=== PATIENT | male | born 1985 | race Caucasian/White ===

== ENCOUNTER 2024-09-06 22:20 | Emergency (ER) | payer SELFPAY ==
--- NOTE | ~2024-09-06 | XR_ITS ---
EXAM: XR foot RT min 3V DATE: 09/06/2024 22:45 HISTORY: crush injury . COMPARISON: None available. FINDINGS: Normal mineralization. No fracture or dislocation. No lytic or blastic lesion. Mild degene rative change at the first MTP joint. Mild hallux valgus. Achilles enthesopathy. Chronic shortening o f the second metatarsal, with possible old fracture deformity at its base. No erosion or periosteal c hange. Anterolateral soft tissue swelling. IMPRESSION: No acute osseous finding in the right foot. Reviewed, dictated and finalized at location K.
[2024-09-06 22:30] VITALS: O2SAT 93
[2024-09-06 22:31] VITALS: BP 151/80; PULSE 113; RESP 18; TEMP 36.7; O2SAT 98
[2024-09-06 22:47] VITALS: O2SAT 97
[2024-09-06 23:04] VITALS: O2SAT 96
--- NOTE | 2024-09-06 23:09 | ED_ITS ---
HPI - Extremity Injury (Lower) General Chief Complaint: Extremity Injury, Lower Stated Complaint: foot injury Time Seen by Provider: 09/06/24 22:50 Source: patient Mode of arrival: ambulatory Limitations: no limitations History of Present Illness HPI Narrative: Patient is a 39 y/o male who presents to the ED with c/o right foot pain. Patient reports he was emptying out a storage unit and accidentally dropped a l arge solid wood table onto his right foot. Has since developed bruising and swelling to right dorsal foot. Is able to ambulate, but has pain with this. Has not taken anything for pain. Denies any other injuries. Denies numbness. Related Data Allergies Allergy/AdvReac Type Severity Reaction Status Date / Time No Known Allergies Allergy Verified 09/06/24 23:24 Review of Systems Review of Systems: All systems reviewed & are unremarkable except as noted in HPI. All systems reviewed & are unremarkable except as noted in HPI and below Exam Narrative: GENERAL: Well appearing, well-nourished, non-toxic, in no acute distress. HEAD: Normocephalic, atraumatic. RESPIRATORY: Airway patent, respirations nonlabored. CARDIOVASCULAR: Regular rate and rhythm. Pedal pulses are strong and intact. MUSCULOSKELETAL: Moves all extremities. Moderate swelling and bruising to right dorsal/lateral foot with focal tenderness to palpation. Sensation intact throughout foot. Able to wiggle toes. Capillary refill intact. No palpable bony deformities. No significant tenderness over medial or lateral malleoli. SKIN: Warm, dry, normal color. NEURO: A&O X3. Speech clear. No ataxic movements. PSYCHIATRIC: Appropriate mood and affect. Normal interaction. Course Vital Signs Vital signs: Vital Signs Pulse Oximetry 93 09/06/24 22:30 Temperature 98.1 F 09/06/24 22:31 Pulse Rate 78 09/06/24 23:15 Respiratory Rate 16 09/06/24 23:15 Blood Pressure 145/87 H 09/06/24 23:15 Pulse Oximetry 98 09/06/24 23:15 Oxygen Delivery Room Air 09/06/24 22:31 MDM - Extremity Injury (Lower) MDM Narrative Medical decision making narrative: Patient?s injury is consistent with musculoskeletal etiology. No signs of neurologic or vascular compromise on physical examination. Compartments are soft without signs of compartment syndrome. XR of right foot negative for fracture. Pain is consistent with foot contusion. Patient is felt to be stable for discharge home and further outpatient management and treatment. Patient placed in Wilfredo bandage, given crutches and postop shoe for support. Discussed rice therapy, recommended frequent icing, elevation of leg. Recommended Tylenol/ibuprofen as needed for pain. Given return precautions. Discharged in stable condition. Medical Records Attestation: I reviewed the patient's medical records. Imaging Data Attestation: I personally reviewed and interpreted this imaging study as follows: Radiologist's impression: ITS Impressions Foot X-Ray 09/06/24 22:49 IMPRESSION: No acute osseous finding in the right foot. Discharge Plan Discharge Clinical Impression: Contusion of right foot Qualifiers: Encounter type: initial encounter Qualified Code(s): S90.31XA - Contusion of r ight foot, initial encounter Patient Disposition: Home Condition: Stable Instructions: Antibiotic Form, Foot Contusion (ED), Foot Sprain (ED) Additional Instructions: Recommend frequent icing to foot, elevation of right leg. Utilize Wilfredo bandage for compression and support. Crutches and postop shoe as needed for assistance with ambulation. Recommend Tylenol and ibuprofen as needed for pain. Return to the ED for worsening or severe pain or swelling, recurrent fall or injury, numbness, or any other symptoms of concern. Patient Language: Maltese Follow-up/Referrals: UNKNOWN,DOCTOR [Primary Care Provider] - Stand Alone Forms: Work/School Release IP Time of Disposition: 23:20
[2024-09-06 23:15] VITALS: BP 145/87; PULSE 78; RESP 16; O2SAT 98
[2024-09-06] MEDS: IBUPROFEN 600 MG TABLET PO (23:31)
== END 2024-09-06 23:39 | disposition home or self-care (01) ==
PROVIDERS: Emergency Provider Physician Assistant
DX: S90.31XA Contusion of right foot, initial encounter (principal); W20.8XXA Other cause of strike by thrown, projected or falling object, initial encounter
CPT/HCPCS: 73630; 99283; A9270